=== PATIENT | female | born 1995 | race Caucasian/White ===

== ENCOUNTER 2024-11-27 15:55 | Outpatient (CLI) | payer MEDICAID, SELFPAY ==
[2024-11-27 19:39] LABS: Chlamydia DNA Amplified* NOT DETECTED (No Detected); GC DNA Amplified* NOT DETECTED (No Detected)
== END 2024-11-27 15:56 | disposition home or self-care (01) ==
LOC: NFLDREF 15:56
PROVIDERS: Visit Provider Obstetrics & Gynecology
DX: N93.9 Abnormal uterine and vaginal bleeding, unspecified (principal)
CPT/HCPCS: 87491; 87591

== ENCOUNTER 2025-01-08 13:37 | Outpatient (CLI) | payer MEDICAID, SELFPAY ==
--- NOTE | 2025-01-08 14:00 | CRLHL7_ITS ---
For Patients: As a result of the Century Cures Act, medical imaging exams and procedure reports are released immediately into your electronic medical record. You may view this report before your referring provider. If you have questions, please contact your health care provider. INDICATION: 29 year-old female. Abnormal uterine bleeding. Pelvic pain. TECHNIQUE: Transabdominal and transvaginal pelvic ultrasound. Grayscale and color spectral Doppler waveform analysis performed. FINDINGS: The uterus measures 7.8 x 3.8 x 4.3 cm. Endometrial stripe measures 4.7 mm transvaginally. There is a very small subserosal lesion on the posterior right superior uterine body measuring 1.8 x 0.8 x 1.1 cm likely a small discrete uterine fibroid. There is a 2nd questionable tiny intramural fibroid in the anterior upper uterine body measuring only a few mm. Neither one of these impinge upon the endometrial stripe. Small amount of free pelvic fluid likely physiologic. Normal size ovaries with the right measuring 3.6 x 1.9 x 2.1 cm and the left ovary measuring 4.4 x 1.3 x 2.4 cm. Both ovaries contain numerous small follicles. Blood flow is documented in the ovaries both arterial and venous. No torsion. IMPRESSION: 1. Two tiny uterine fibroids neither of which impinge upon the endometrial stripe. 2. Normal endometrial stripe thickness of 4.7 mm. 3. Normal ovaries without torsion or mass. Dictated by Sam Rasmussen MD @ 01/13/2025 11:14:08 AM (Electronically Signed)
== END 2025-01-08 13:38 | disposition home or self-care (01) ==
LOC: US 13:38
PROVIDERS: Visit Provider Obstetrics & Gynecology
DX: N93.9 Abnormal uterine and vaginal bleeding, unspecified (principal); D25.9 Leiomyoma of uterus, unspecified; R93.89 Abnormal findings on diagnostic imaging of other specified body structures; R10.2 Pelvic and perineal pain
CPT/HCPCS: 76830; 76856; 93976